=== PATIENT | female | born 1950 | race Caucasian/White ===

== ENCOUNTER 2022-11-03 15:22 | Inpatient (IN) | payer MEDICARE, OTHER ==
[~2022-11-03] VITALS: Ht 162.6 cm; Wt 82.1 kg
--- NOTE | 2022-11-03 15:30 | NUR ---
Pt brought in by [id number] from an unknown SNF with c/o chest pain. No informaion about medical history, paperwork or old records received. EMS left before giving report to triage nurse.
--- NOTE | 2022-11-03 15:45 | NUR ---
seen and examined by MD Pierce
--- NOTE | 2022-11-03 16:10 | NUR ---
covid and mrsa swab collected and sent to lab
[2022-11-03 16:26] LABS: CARBON DIOXIDE 36 mmol/L (21-32); CHLORIDE 101 mmol/L (98-107); CREATININE 0.9 mg/dL (0.6-1.3); GLUCOSE 96 mg/dL (74-106); POTASSIUM 4.2 mmol/L (3.5-5.1); UREA NITROGEN, BLOOD 12 mg/dL (7-18)
[2022-11-03 16:27] LABS: HEMATOCRIT 33.6 % (31.2-41.9); MEAN CORPUSCULAR HEMOGLOBIN 31.5 uug (24.7-32.8); MEAN CORPUSCULAR VOLUME 97.5 fL (75.5-95.3); PLATELET COUNT (AUTO) 334 K/uL (179-408)
[2022-11-03 16:41] LABS: ALANINE AMINOTRANSFERASE 16 U/L (14-59); ALKALINE PHOSPHATASE 129 U/L (50-136); ASPARTATE AMINOTRANSFERASE 10 U/L (15-37); BILIRUBIN,DIRECT 0.1 mg/dL (0.0-0.2); BILIRUBIN,TOTAL 0.3 mg/dL (0.2-1.0); TOTAL PROTEIN, SERUM 6.8 g/dL (6.4-8.2)
--- NOTE | 2022-11-03 17:10 | NUR ---
called [facility] for call panel
[2022-11-03] MEDS ORDERED: MAGNESIUM HYDROXIDE 30 ML LIQUID UDC PO PRN (17:45)
[2022-11-03] MEDS ORDERED: ONDANSETRON 4 MG/2 ML VIAL IV PRN (17:45)
[2022-11-03] MEDS ORDERED: REMEDY ESSENTIAL ZINC PASTE 113 GM TP PRN (17:45)
[2022-11-03] MEDS ORDERED: NITROGLYCERIN 0.4 MG/TAB BOTTLE SL PRN (19:00)
[2022-11-03] MEDS ORDERED: METOCLOPRAMIDE HCL 10 MG/2 ML VIAL IV SCH (19:00)
[2022-11-03] MEDS ORDERED: MECLIZINE HCL 25 MG TABLET PO SCH (19:00)
[2022-11-03] MEDS ORDERED: diphenhydrAMINE 50 MG/1 ML VIAL IV PRN (19:00)
[2022-11-03] MEDS ORDERED: ASPIRIN 81 MG TAB.CHEW ONE (19:03)
[2022-11-03] MEDS ORDERED: METOCLOPRAMIDE HCL 10 MG/2 ML VIAL ONE (19:04)
[2022-11-03] MEDS ORDERED: MECLIZINE HCL 25 MG TABLET ONE (19:04)
[2022-11-03] MEDS: ASPIRIN 81 MG TAB.CHEW PO SCH (19:07)
--- NOTE | 2022-11-03 20:10 | NUR ---
Dr. Waddell gave report to third floor nurse Kathy WINTERS.
--- NOTE | 2022-11-03 20:15 | NUR ---
Patient taken to third floor via gurney accompanied by Dr. Waddell. Kathy RN aware of patients arrival.
--- NOTE | 2022-11-03 20:20 | NUR ---
Patient in stable condition, no signs of distress noted. Patient arrived with no personal belongings.
--- NOTE | 2022-11-03 21:00 | NUR ---
Admitted 71 yr old pt diagnosed with chest pain under Kathy Armendariz WIRE BORDER ASSEMBLER. Alert and oriented x4. On 2LPM sating at 97%. Sinus Tachy on Tele. Pt stated mild chest pain when she does deep breathing. Skin is intact. Noted redness on left heel. Pt is incontinent of bowel and bladder. Unable to walk because of lower back pain. Has 3 Lidocaine patches on her back when she came in. No back pain as of this time. Has strong upper and lower extremities. Pt has cough and has hoarse voice. Some difficulty swallowing as well. Routine admission done. Oriented to hospital room. All needs attended. Will continue to monitor.
[2022-11-03 21:43] VITALS: BP 133/68
--- NOTE | 2022-11-03 22:00 | NUR ---
Spoke to RT, Echocardiogram STAT was not done. No tech available. Kala APPLICATION PACKAGING CONSULTANT made aware.
--- NOTE | 2022-11-03 23:30 | NUR ---
Pt came from [facility]. Spoke to Cindy, she stated that all paperwork was given to EMT when they transferred her. No paperwork was received in the ER. Told her to fax the medication list and other paperwork. Also per pt she brought an orange bag with all her belongings. Cindy stated that no belongings was brought with her but she will check her room. Will follow up.
[2022-11-04] VITALS (8 sets, daily range): BP systolic 93–142; BP diastolic 47–79
[2022-11-04] MEDS ORDERED: MORPHINE SULFATE 2 MG/1 ML DISP.SYRIN IM PRN (00:45)
--- NOTE | 2022-11-04 00:47 | NUR ---
Pt complained of chest pain /10 with BP of 142/79. 1 Nitro SL given. BP went down to 93/47, recycled BP 109/63. Pain score now at 4/10. aware. Received order for Morphine 2 mg, Repeat Troponin and EKG.
[2022-11-04] MEDS ORDERED: ALBU5SOL7 INH (02:49)
[2022-11-04] MEDS ORDERED: IPRA0.2S48 NEB (03:02)
[2022-11-04] MEDS ORDERED: ALEN70TA80 PO (03:02)
[2022-11-04] MEDS ORDERED: FLUT1BLS15 IH (03:02)
[2022-11-04] MEDS ORDERED: ATOR20TA PO (03:02)
[2022-11-04] MEDS ORDERED: METO-356 PO (03:02)
[2022-11-04] MEDS ORDERED: LIDO30AD10 TD (03:02)
[2022-11-04] MEDS ORDERED: NITR0.4T48 SL (03:02)
[2022-11-04] MEDS ORDERED: ACET-2154 PO (03:02)
[2022-11-04] MEDS ORDERED: LACT-291 PO (03:02)
[2022-11-04] MEDS ORDERED: GABA-532 PO (03:02)
--- NOTE | 2022-11-04 06:14 | NUR ---
Blood glucose is 63. Refused orange juice. Gave apple juice with sugar. Rechecked BS, 73. Will endorse to incoming nurse.
[2022-11-04 07:41] LABS: HEMATOCRIT 32.1 % (31.2-41.9); MEAN CORPUSCULAR HEMOGLOBIN 31.9 uug (24.7-32.8); MEAN CORPUSCULAR VOLUME 97.6 fL (75.5-95.3); PLATELET COUNT (AUTO) 287 K/uL (179-408)
[2022-11-04 07:44] LABS: CREATININE 0.8 mg/dL (0.6-1.3); MAGNESIUM 1.9 mg/dL (1.8-2.4); PHOSPHOROUS 2.8 mg/dL (2.5-4.9); POTASSIUM 4.2 mmol/L (3.5-5.1)
--- NOTE | 2022-11-04 07:48 | NUR ---
IV ACCESS: 1) A new midline inserted on the LUIS F 2) Site, clean, dry, patent, and no sign of swelling observed.
--- NOTE | 2022-11-04 08:33 | NUR ---
PAIN MANAGEMENT: 1) DETAIL TECHNICIAN Kala responded and ordered: (i) Administer Morphine as prescribed (ii) Hold Reglan and Benadryl 2) Will administer as ordered
--- NOTE | 2022-11-04 08:34 | NUR ---
PAIN MANAGEMENT: 1) C/o of pain in the right side of the chest 2) Remain Sinus Tarchy in the 110s 3) Telemetry also shows PVCs 4) Will inform MD.
--- NOTE | 2022-11-04 08:41 | NUR ---
PAIN MANAGEMENT: 1) Morphine administered as prescribed 2) Will continue to monitor effect during the shift
[2022-11-04] MEDS ORDERED: FLUTICASONE/SALMETEROL 250/50 INHALER IH SCH (11:00)
[2022-11-04] MEDS ORDERED: IOHEXOL 350 100 ML INFUS..BTL ONE (13:38)
[2022-11-04] MEDS ORDERED: SWABABLE VALVE TRANSFER SET EA MC ONE (13:38)
[2022-11-04] MEDS ORDERED: IV NORMAL SALINE 250 ML IV ONE (13:38)
--- NOTE | 2022-11-04 14:05 | NUR ---
DELAY IN PM MEDICATION DELAY - Patient in CTA scan
[2022-11-04] MEDS: FLUTICASONE/VILANTEROL 1 EACH BLST.W.DEV INH SCH (14:54)
[2022-11-04] MEDS: GABAPENTIN 100 MG CAPSULE PO SCH ×2 (14:55→17:47)
[2022-11-04] MEDS: ENOXAPARIN SODIUM 40 MG/0.4 ML DISP.SYRIN SQ SCH (15:00)
--- NOTE | 2022-11-04 15:01 | NUR ---
PM MEDICATIONS: 1) Enoxaparin administered as prescribed. 2) Inhaler administered as prescribed 3) Zofran also administered 4) Refused and denied having pain - reassurance given - encouraged to ask should she feel pain.
--- NOTE | 2022-11-04 15:54 | NUR ---
ROUNDING: Patient asleep comfortably and no non-verbal signs of pain observed
--- NOTE | 2022-11-04 17:49 | NUR ---
EVENING MEDICATION: 1) Gabapentin administered for pain - await effect 2) Patient awake and watching tv. 3) Will endorse care accordingly to night staff who will continue care as required. 4) No sign of distress, SOB, or concerned expressed.
--- NOTE | 2022-11-04 19:15 | NUR ---
NIGHT ENDORSEMENT: 1) No change in condition, no sign of distress, SOB, or pain observed at the time of this report. 2) Care endorsed to night staff accordingly.
[2022-11-04] MEDS: ATORVASTATIN 20 MG TABLET PO SCH (20:55)
--- NOTE | 2022-11-04 20:55 | NUR ---
patient took po medication with water due Lipitor given .
--- NOTE | 2022-11-04 21:05 | NUR ---
incontinent of urine with WELDER/FABRICATOR help changed soiled linens and gown z -guard applied . tunred and reposition patient off loaded back with pillows .heels off the bed .
--- NOTE | 2022-11-05 | NUR ---
patient sleeping in bed no distress noted breathing even and unlabored .
[2022-11-05 00:02] VITALS: BP 101/53
[2022-11-05] MEDS: ACETAMINOPHEN 325 MG TABLET PO PRN (04:02)
--- NOTE | 2022-11-05 04:09 | NUR ---
jayne called c/o generalized pain and requested Tylenol prn Tylenol given tolerated with water .
[2022-11-05 04:22] VITALS: BP 108/59
[2022-11-05] MEDS ORDERED: ALENDRONATE SODIUM 70 MG TABLET PO SCH (06:00)
[2022-11-05 07:21] LABS: HEMATOCRIT 29.1 % (31.2-41.9); MEAN CORPUSCULAR HEMOGLOBIN 32.1 uug (24.7-32.8); MEAN CORPUSCULAR VOLUME 100.1 fL (75.5-95.3); PLATELET COUNT (AUTO) 291 K/uL (179-408)
[2022-11-05 07:35] LABS: CREATININE 0.8 mg/dL (0.6-1.3); POTASSIUM 4.1 mmol/L (3.5-5.1)
--- NOTE | 2022-11-05 08:30 | NUR ---
RECEIVED PATIENT IN BED AWAKE ALERT AND AWARE DENIES PAIN OR DISCOMFORTS AT THIS TIME ON O2 WITH NO SHORTNESS OF BREATH AT THIS TIME TELE IS SR WITH NO ECTOPY.RIGHT UPPER ARM MID LINE IS INTACT WITH NO S/S OF INFILTERATION AT THIS TIME CALL LIGHTS AND PERSONAL BELONGINGS ARE WITHIN EASY REACH WILL CONTINUE TO OBSERVE.
[2022-11-05] MEDS: GABAPENTIN 100 MG CAPSULE PO SCH ×3 (08:59→16:10)
[2022-11-05] MEDS: METOPROLOL SUCCINATE XL 25 MG TAB.SR.24H PO SCH (08:59)
[2022-11-05] MEDS: ASPIRIN 81 MG TAB.CHEW PO SCH (08:59)
[2022-11-05] MEDS ORDERED: FLUTICASONE/SALMETEROL 250/50 INHALER IH SCH (09:00)
[2022-11-05] MEDS ORDERED: LIDOCAINE 5% PATCH TD SCH (09:00)
[2022-11-05] MEDS: FLUTICASONE/VILANTEROL 1 EACH BLST.W.DEV INH SCH (09:00)
[2022-11-05] MEDS: ENOXAPARIN SODIUM 40 MG/0.4 ML DISP.SYRIN SQ SCH (09:12)
[2022-11-05] MEDS ORDERED: MORPHINE SULFATE 2 MG/1 ML DISP.SYRIN IV PRN (09:45)
[2022-11-05] MEDS: LIDOCAINE 5% PATCH TD SCH (09:56)
[2022-11-05 11:41] VITALS: BP 99/54
[2022-11-05] MEDS: CULTURELLE CAPSULE PO SCH (12:46)
[2022-11-05] MEDS: CEFTRIAXONE 1 G in IV DEXTROSE 5% 50 ML IV SCH (12:47)
--- NOTE | 2022-11-05 13:00 | NUR ---
PATIENT SEEN AND EXAMINED BY EMMANUEL TORRES WITH NEW ORDERS AND NOTED.
[2022-11-05] MEDS: AZITHROMYCIN IV 500 MG in IV DEXTROSE 5% 250 ML IV SCH (13:38)
--- NOTE | 2022-11-05 14:37 | NUR ---
IV ATB GIVEN ORDERED WITH NO ADVERSE OR ALLERGIC REACTIONS AT THIS TIME.
[2022-11-05 16:00] VITALS: BP 99/63
[2022-11-05 20:32] VITALS: BP 109/58
[2022-11-05] MEDS: ATORVASTATIN 20 MG TABLET PO SCH (20:38)
[2022-11-06] MEDS: ACETAMINOPHEN 325 MG TABLET PO PRN (05:15)
[2022-11-06 05:18] VITALS: BP 115/54
--- NOTE | 2022-11-06 06:26 | NUR ---
Slept intermittently, no acute distress noted. No complain of chest pain. LUIS F midline intact and patent. Needs assessed and attended to.
[2022-11-06 06:28] LABS: HEMATOCRIT 31.7 % (31.2-41.9); MEAN CORPUSCULAR HEMOGLOBIN 31.6 uug (24.7-32.8); MEAN CORPUSCULAR VOLUME 98.3 fL (75.5-95.3); PLATELET COUNT (AUTO) 281 K/uL (179-408)
[2022-11-06 06:51] LABS: CREATININE 0.8 mg/dL (0.6-1.3); POTASSIUM 4.2 mmol/L (3.5-5.1)
--- NOTE | 2022-11-06 07:30 | NUR ---
RECEIVED PATIENT IN BED AWAKE ALERT ORIENTED BUT FORGETFUL DENIES PAIN OR DISCOMFORTS AT THIS TIME.ON O2 WITH NO SOB AT THIS TIME MID LINE IS INTACT WITH NO S/S OF INFILTERATION ON SITE ATB ORDERED WITH NO S/S OF INFILTERATION ON SITE CALL LIGHTS AND PERSONAL BELONGINGS ARE WITHIN EASY REACH AT THIS TIME WILL CONTINUE TO OBSERVE.
[2022-11-06] MEDS: ASPIRIN 81 MG TAB.CHEW PO SCH (08:25)
[2022-11-06] MEDS: FLUTICASONE/VILANTEROL 1 EACH BLST.W.DEV INH SCH (08:25)
[2022-11-06] MEDS: GABAPENTIN 100 MG CAPSULE PO SCH ×3 (08:25→16:45)
[2022-11-06] MEDS: CULTURELLE CAPSULE PO SCH (08:25)
[2022-11-06] MEDS: METOPROLOL SUCCINATE XL 25 MG TAB.SR.24H PO SCH (08:26)
[2022-11-06] MEDS: LIDOCAINE 5% PATCH TD SCH (08:27)
[2022-11-06] MEDS: ENOXAPARIN SODIUM 40 MG/0.4 ML DISP.SYRIN SQ SCH (08:33)
[2022-11-06 11:31] VITALS: BP 112/68
--- NOTE | 2022-11-06 12:00 | NUR ---
patient seen by the physical therapy able to do some side steps and back to bed denies discomforts at this time.
[2022-11-06] MEDS: CEFTRIAXONE 1 G in IV DEXTROSE 5% 50 ML IV SCH (12:11)
[2022-11-06] MEDS: AZITHROMYCIN IV 500 MG in IV DEXTROSE 5% 250 ML IV SCH (12:43)
[2022-11-06 16:00] VITALS: BP 115/68
--- NOTE | 2022-11-06 18:51 | NUR ---
RESTING TOLERATED IV ANTIBIOTICS ORDERED WITH NO ADVERSE OR ALLERGIC REACTIONS AT THIS TIME WILL CONTINUE TO OBSERVE.
[2022-11-06 20:02] VITALS: BP 107/57
[2022-11-06] MEDS: ATORVASTATIN 20 MG TABLET PO SCH (20:07)
[2022-11-07 04:05] VITALS: BP 102/57
[2022-11-07 05:23] LABS: HEMATOCRIT 31.9 % (31.2-41.9); MEAN CORPUSCULAR VOLUME 97.9 fL (75.5-95.3); PLATELET COUNT (AUTO) 284 K/uL (179-408)
[2022-11-07 06:19] LABS: CREATININE 0.8 mg/dL (0.6-1.3); POTASSIUM 4.3 mmol/L (3.5-5.1)
[2022-11-07] MEDS: METOPROLOL SUCCINATE XL 25 MG TAB.SR.24H PO SCH (09:00)
--- NOTE | 2022-11-07 10:00 | NUR ---
[facility] PT IN BED RESTING. AAOX2-3 WITH EPISODES OF FORGETFULNESS. NO EPISODE OF SOB. PT PROVIDED BUT BARELY CAN STAND UP. NO EPISODE OF CHEST PAIN. ROUTINE MEDS GIVEN AND PT TOLERATED IT WELL.
[2022-11-07] MEDS: GABAPENTIN 100 MG CAPSULE PO SCH ×2 (10:05→12:44)
[2022-11-07] MEDS: CULTURELLE CAPSULE PO SCH (10:05)
[2022-11-07] MEDS: FLUTICASONE/VILANTEROL 1 EACH BLST.W.DEV INH SCH (10:05)
[2022-11-07] MEDS: ASPIRIN 81 MG TAB.CHEW PO SCH (10:05)
[2022-11-07] MEDS: LIDOCAINE 5% PATCH TD SCH (10:06)
[2022-11-07] MEDS: ENOXAPARIN SODIUM 40 MG/0.4 ML DISP.SYRIN SQ SCH (10:17)
[2022-11-07 11:28] VITALS: BP 98/57
[2022-11-07] MEDS ORDERED: ASPI81TA31 PO (11:32)
[2022-11-07] MEDS ORDERED: LEVO500T90 PO (11:32)
[2022-11-07] MEDS: CEFTRIAXONE 1 G in IV DEXTROSE 5% 50 ML IV SCH (12:04)
[2022-11-07] MEDS ORDERED: AZITHROMYCIN 250 MG TABLET PO SCH (13:00)
--- NOTE | 2022-11-07 17:28 | NUR ---
PT. WAS DISCHARGED TO [facility] AND PICKED BY AMBULANCE VIA GURNEY. ALL DISCHARGE PROTOCOL OBSERVED. PERSONAL BELONGINGS ALL ACCOUNTED FOR. PT. TEACHING PROVIDED. PT LEFT STABLE.
== END 2022-11-07 14:45 | DRG 193 ==
LOC: ER 15:22 → TELE3 18:11 → MEDSURG3 11-05 15:25
PROVIDERS: ADMIT Nurse Practitioner Acute Care; ATTEND Nurse Practitioner Acute Care
PROC: 05HD33Z Insertion of Infusion Device into Right Cephalic Vein, Percutaneous Approach (ICD-10-PCS; principal; 2022-11-04)
DX: J15.9 Unspecified bacterial pneumonia (principal); G93.41 Metabolic encephalopathy; E44.0 Moderate protein-calorie malnutrition; M48.56XA Collapsed vertebra, not elsewhere classified, lumbar region, initial encounter for fracture; J44.0 Chronic obstructive pulmonary disease with (acute) lower respiratory infection; G89.29 Other chronic pain; Y95 Nosocomial condition; Z68.29 Body mass index [BMI] 29.0-29.9, adult; E66.9 Obesity, unspecified; E88.09 Other disorders of plasma-protein metabolism, not elsewhere classified; R79.1 Abnormal coagulation profile; R00.0 Tachycardia, unspecified; Z20.822 Contact with and (suspected) exposure to COVID-19; Z79.899 Other long term (current) drug therapy; R11.2 Nausea with vomiting, unspecified; I10 Essential (primary) hypertension; F99 Mental disorder, not otherwise specified; M19.90 Unspecified osteoarthritis, unspecified site; Z74.09 Other reduced mobility
CPT/HCPCS: 36415; 71045; 71275; 83735; 84100; 84484; 85025; 93005; 93307; A4663; G0378; J0456; J0696; J1650; J2270; J2405; J2765; J7050; J8499; J8597; Q0144; Q9967